=== PATIENT | female | born 1935 | race Caucasian/White ===

== ENCOUNTER 2018-08-12 12:02 | Emergency (ER) | payer MEDICARE ==
[2018-08-12] MEDS ORDERED: SODIUM CHLORIDE 0.9% 1,000 ML IV STA (12:17)
[2018-08-12] MEDS ORDERED: LABETALOL SYRINGE 5 MG/ML IVP STA ×2 (12:17→13:18)
--- NOTE | 2018-08-12 12:43 | ED ---
Recheck HPI - General Chief Complaint: Recheck/Abnormal Lab/Rx Stated Complaint: HYPERTENSION Time Seen by Provider: 08/12/18 12:17 Source: patient, RN notes reviewed, old records reviewed Mode of arrival: wheelchair Limitations: no limitations - History of Present Illness Initial Comments: This is a 3-year-old female the ER for evaluation of elevated blood pressure. Patient states blood pressure been running high for about 3-4 months weeks. Patient is follow-up with primary care who did double her medication twice with no improvement in blood pressure. Patient occasionally has headache but just more for units, no neurological complaint. Headaches been episodic and intermittent. No trauma. No nausea vomiting. Patient denies drugs or etoh Taking medications as directed. No chest pain shortness breath or abdominal pain. MD Complaint: other (Recheck blood pressure) -: days(s) Returns Today for: Called Because of Abnormal Lab/Test (Abnormal blood pressure) Symptoms Since Prior Visit: no new symptoms Context: planned re-check Associated Symptoms: none - Related Data Allergies Allergy/AdvReac Type Severity Reaction Status Date / Time No Known Allergies Allergy Verified 08/12/18 12:13 Review of Systems ROS Statement: Those systems with pertinent positive or pertinent negative responses have been documented in the HPI. ROS Other: All systems not noted in ROS Statement are negative. Past Medical History Past Medical History: GERD/Reflux, Hypertension History of Any Multi-Drug Resistant Organisms: None Reported Past Surgical History: Appendectomy Additional Past Surgical History / Comment(s): pancreatic surg Past Psychological History: No Psychological Hx Reported Smoking Status: Never smoker Past Alcohol Use History: Occasional Past Drug Use History: None Reported General Exam Limitations: no limitations General appearance: alert, in no apparent distress Head exam: Present: atraumatic, normocephalic, normal inspection Eye exam: Present: normal appearance, PERRL, EOMI. Absent: scleral icterus, conjunctival injection, periorbital swelling ENT exam: Present: normal exam, mucous membranes moist Neck exam: Present: normal inspection. Absent: tenderness, meningismus, lympha denopathy Respiratory exam: Present: normal lung sounds bilaterally. Absent: respiratory distress, wheezes, rales, rhonchi, stridor Cardiovascular Exam: Present: regular rate, normal rhythm, normal heart sounds. Absent: systolic murmur, diastolic murmur, rubs, gallop, clicks GI/Abdominal exam: Present: soft, normal bowel sounds. Absent: distended, tenderness, guarding, rebound, rigid Extremities exam: Present: normal inspection, full ROM, normal capillary refill. Absent: tenderness, pedal edema, joint swelling, calf tenderness Back exam: Present: normal inspection Neurological exam: Present: alert, oriented X3, CN II-XII intact Psychiatric exam: Present: normal affect, normal mood Skin exam: Present: warm, dry, intact, normal color. Absent: rash Course Vital Signs 08/12/18 08/12/18 08/12/18 12:09 12:36 12:51 Temperature 97.6 F Pulse Rate 72 75 63 Respiratory 18 16 16 Rate Blood Pressure 185/89 196/80 171/73 O2 Sat by Pulse 100 100 98 Oximetry - Reevaluation(s) Reevaluation #1: 08/12/18 13:21 Medical record reviewed including medication list Reevaluation #2: 08/12/18 13:21 Patient has adequate blood pressure control now, no neurological findings. Medical Decision Making - Medical Decision Making 81 female with acute on chronic hypertension and headache. CT brain negative for acute disease, labwork is normal. Patient will again follow-up with primary care regarding blood pressure control. We have added a new blood Pressure medication today - Lab Data Result diagrams: 08/12/18 12:30 08/12/18 12:30 Lab Results 08/12/18 08/12/18 08/12/18 Range/Units 12:30 12:30 12:30 WBC 6.2 (3.8-10.6) k/uL RBC 4.43 (3.80-5.40) m/uL Hgb 13.2 (11.4-16.0) gm/dL Hct 40.5 (34.0-46.0) % MCV 91.5 (80.0-100.0) fL MCH 29.8 (25.0-35.0) pg MCHC 32.6 (31.0-37.0) g/dL RDW 13.5 (11.5-15.5) % Plt Count 246 (150-450) k/uL Neutrophils % 70 % Lymphocytes % 16 % Monocytes % 9 % Eosinophils % 3 % Basophils % 1 % Neutrophils # 4.3 (1.3-7.7) k/uL Lymphocytes # 1.0 (1.0-4.8) k/uL Monocytes # 0.5 (0-1.0) k/uL Eosinophils # 0.2 (0-0.7) k/uL Basophils # 0.0 (0-0.2) k/uL Sodium 134 L (137-145) mmol/L Potassium 4.4 (3.5-5.1) mmol/L Chloride 99 (98-107) mmol/L Carbon Dioxide 26 (22-30) mmol/L Anion Gap 9 mmol/L BUN 17 (7-17) mg/dL Creatinine 0.85 (0.52-1.04) mg/dL Est GFR (CKD-EPI)AfAm 74 (>60 ml/min/1.73 sqM) Est GFR (CKD-EPI)NonAf 64 (>60 ml/min/1.73 sqM) Glucose 108 H (74-99) mg/dL Plasma Lactic Acid Charlie 1.2 (0.7-2.0) mmol/L Calcium 9.5 (8.4-10.2) mg/dL Phosphorus 3.8 (2.5-4.5) mg/dL Magnesium 2.0 (1.6-2.3) mg/dL Total Bilirubin 0.9 (0.2-1.3) mg/dL AST 28 (14-36) U/L ALT 15 (9-52) U/L Alkaline Phosphatase 65 (38-126) U/L Total Protein 7.7 (6.3-8.2) g/dL Albumin 4.5 (3.5-5.0) g/dL - EKG Data -: EKG Interpreted by Me (EKG shows sinus rhythm rate of 69, [place] 134, QRS 84, QTc 432) - Radiology Data Radiology results: report reviewed (CT brain is negative for acute disease), image reviewed Disposition Clinical Impression: Hypertension Disposition: HOME SELF-CARE Condition: Good Instructions (If sedation given, give patient instructions): Chronic Hype rtension (ED), Hypertension (ED) Is patient prescribed a controlled substance at d/c from ED?: No Referrals: Navi Ibarra MD [Primary Care Provider] - 1-2 days
[2018-08-12 12:58] LABS: Basophils % (A) 1 %; Eosinophils # (A) 0.2 k/uL (0-0.7); Eosinophils % (A) 3 %; HCT 40.5 % (34.0-46.0); HGB 13.2 gm/dL (11.4-16.0); Lymphocytes % (A) 16 %; MCH 29.8 pg (25.0-35.0); MCHC 32.6 g/dL (31.0-37.0); MCV 91.5 fL (80.0-100.0); Monocytes # (A) 0.5 k/uL (0-1.0); Monocytes % (A) 9 %; Neutrophils # (A) 4.3 k/uL (1.3-7.7); Neutrophils % (A) 70 %; Platelet Count 246 k/uL (150-450); RBC 4.43 m/uL (3.80-5.40); RDW 13.5 % (11.5-15.5); WBC 6.2 k/uL (3.8-10.6)
[2018-08-12 13:09] LABS: Albumin 4.5 g/dL (3.5-5.0); Calcium 9.5 mg/dL (8.4-10.2); Phosphorus 3.8 mg/dL (2.5-4.5); Potassium 4.4 mmol/L (3.5-5.1); Total Bilirubin 0.9 mg/dL (0.2-1.3); Total Protein 7.7 g/dL (6.3-8.2)
[2018-08-12 13:30] VITALS: RESP 18
--- NOTE | 2018-08-12 14:10 | CT ---
EXAMINATION TYPE: CT brain wo con DATE OF EXAM: 08/12/2018 COMPARISON: Pain INDICATION: Hypertension DLP: 1011.4 mGycm, Automated exposure control for dose reduction was used. CONTRAST: None CT of the brain is performed utilizing 3 mm thick sections through the posterior fossa and 3 mm thick sections through the remaining calvarium. Study is performed within 24 hours of arrival to the hosp ital. No abnormal hyperdensity is present to suggest an acute intracranial hemorrhage. No mass lesion is evident. No acute infarcts are evident. Ventricles and sulci are appropriate for the patient age. Paranasal sinuses and mastoid air cells within the [id number] are clear. IMPRESSIONS: 1. No acute intracranial process.
[2018-08-12 15:20] VITALS: BP 159/66; PULSE 67; TEMP 97.9
== END 2018-08-12 15:19 | disposition home or self-care (01) ==
LOC: EC 12:02
DX: I10 Essential (primary) hypertension (principal)
CPT/HCPCS: 36415; 70450; 80053; 83605; 83735; 84100; 84484; 85025; 93005; 96361; 96374; 96376; 99284

== ENCOUNTER → 2019-02-23 | Outpatient (CLI) | payer MEDICARE ==
--- NOTE | 2019-03-04 07:48 | PE ---
EXAMINATION TYPE: PET CT fusion whole body DATE OF EXAM: 02/23/2019 COMPARISON: CT brain of 08/12/[address] urogram dated 12/02/2013 HISTORY: Brain metastasis with unknown primary. TECHNIQUE: Following the intravenous administration of 12.29 mCi of F-18 FDG, whole body images are performed from the skull base to the midthigh. Images are reviewed on the computer in the coronal, a xial, and sagittal planes. Reconstructed rotating images are created on independent workstation and reviewed on the computer. A localization and attenuation correction CT is performed in conjunction with the PET scan. SCAN: Initial. FINDINGS: Mediastinal background: 1.4 Abdominal background: 2.11 SKULL BASE AND NECK: There is a heterogenous 3.2 cm right thyroid nodule with a maximum SUV of 1.5. CHEST, MEDIASTINUM, AND HILAR REGION: No suspicious hypermetabolic uptake. ABDOMEN AND PELVIS: The uterus is diffusely hypermetabolic throughout with a maximum SUV of 15.47. OSSEOUS STRUCTURES: No suspicious hypermetabolic uptake. OTHER CT: Atheromatous change of the carotid arteries is seen. Paranasal sinuses are well aerated. Mo derate degenerative changes of the spine. The lungs demonstrate multifocal subsegmental atelectasis. Linear pleural parenchymal scarring of the right middle lobe. Enlargement of the main pulmonary arter y suggesting underlying pulmonary arterial hypertension. Moderate coronary artery calcifications. Not hypermetabolic left hepatic lobe lesion measures 2.2 cm marked on image 153. This would be better ev aluated with contrast. The heart is mildly enlarged. 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 Moderate atheromatous changes of the abdominal aorta. Moderate degr ee colonic fecal stasis. Left ovarian 1.8 cm cyst. IMPRESSION: 1. Marked hypermetabolic uptake diffusely of the uterus. Consider surgical consultation with DIRECTOR OF RECRUITMENT AND ADMISSIONS a nd pelvic ultrasound or MRI. 2. Slightly hypermetabolic heterogenous 3.2 cm right thyroid nodule. Thyroid ultrasound is recommende d. 3. Solitary hypermetabolic left hepatic lobe lesion that remains indeterminate but grossly similar to the exam of 2014.
== END | disposition home or self-care (01) ==
LOC: RADPETMAIN 13:18
PROVIDERS: ATTEND Nurse Practitioner
DX: E04.1 Nontoxic single thyroid nodule (principal); K76.9 Liver disease, unspecified; R93.41 Abnormal radiologic findings on diagnostic imaging of renal pelvis, ureter, or bladder
CPT/HCPCS: 78816; A9552